=== PATIENT | male | born 1985 | race Hispanic/Latino ===

== ENCOUNTER 2018-05-24 09:59 | Emergency (ER) | payer SELFPAY ==
[~2018-05-24 09:59] MED LIST: Sodium Chloride Irrig Solution 250 ML BOT ONE
[2018-05-24] MEDS ORDERED: Adacel (T-DAP) 0.5 ML VIAL ONE (10:05)
[2018-05-24] MEDS ORDERED: cefTRIAXone\\ROCEPHIN 1 GM VIAL ONE (10:05)
[2018-05-24] MEDS ORDERED: HYDROcodone/Acetaminophen 5/325 mg Tablet ONE (10:11)
[2018-05-24] MEDS ORDERED: Bacitracin Zinc 1 Packet ONE (10:12)
[2018-05-24] MEDS ORDERED: Lidocaine 2% w/Epinephrine 1:200K 20 ML VIAL ONE (10:22)
== END 2018-05-24 10:55 | disposition home or self-care (01) ==
LOC: MADERS 09:59
DX: S81.812A Laceration without foreign body, left lower leg, initial encounter (principal); W45.8XXA Other foreign body or object entering through skin, initial encounter
CPT/HCPCS: 12001; 90471; 90715; 96372; J0696